=== PATIENT | male | born 1995 | race Caucasian/White ===

== ENCOUNTER 2021-05-09 23:17 | Day surgery (SDC) | payer SELFPAY ==
[2021-05-09] MEDS ORDERED: Lactated Ringers 1,000 ML IV SCH (23:45)
[2021-05-09] MEDS ORDERED: Ondansetron 4 MG/2 ML SDV IVPUSH PRN (23:47)
[2021-05-09] MEDS ORDERED: HYDROmorphone 1 MG/ML Syringe IVPUSH PRN (23:47)
[2021-05-09] MEDS ORDERED: diphenhydrAMINE 50 MG/ML SDV IVPUSH PRN (23:48)
[2021-05-10] MEDS: Acetaminophen 1,000 MG in Premix Bag 1 BAG IV SCH ×3 (00:07→18:32)
[2021-05-10] MEDS ORDERED: Naloxone 0.4 MG/ML SDV IVPUSH PRN (07:33)
[2021-05-10] MEDS ORDERED: Albuterol 0.083% 2.5 MG/3 ML Neb Soln NEB PRN (07:33)
[2021-05-10] MEDS ORDERED: Metoclopramide 10 MG/2 ML SDV IVPUSH PRN (07:33)
[2021-05-10] MEDS ORDERED: Ondansetron 4 MG/2 ML SDV IVPUSH PRN (07:33)
[2021-05-10] MEDS ORDERED: HYDROmorphone 1 MG/ML Syringe IVPUSH PRN (07:33)
[2021-05-10] MEDS ORDERED: Morphine 4 MG/ML VIAL IVPUSH PRN (07:33)
--- NOTE | 2021-05-10 07:34 | PCM.PREANE ---
Preanesthetic Assessment - Anesthesia/Transfusion/Family Hx Anesthesia History: Prior Anesthesia Without Reaction Transfusion History: No Prior Transfusion(s) - Review of Systems General: No Symptoms Pulmonary: No Symptoms Cardiovascular: No Symptoms Gastrointestinal: No Symptoms Neurological: No Symptoms Other: Reports: None - Physical Assessment NPO Status Date: 05/10/21 NPO Status Time: 00:00 Vital Signs: Last Vital Signs Temp 97.7 F 05/10/21 05:00 Pulse 61 05/10/21 05:00 Resp 16 05/10/21 05:00 BP 107/63 05/10/21 05:00 Pulse Ox 97 05/10/21 05:00 Height: 6 ft 3 in Weight: 249 lb 14.4 oz ASA Class: 2E Mental Status: Alert & Oriented x3 Airway Class: Mallampati = 2 Dentition: Reports: Normal Dentition Thyro-Mental Finger Breadths: 3 Mouth Opening Finger Breadths: 3 ROM/Head Extension: Full Lungs: Clear to Auscultation, Normal Respiratory Effort Cardiovascular: Regular Rate, Regular Rhythm - Allergies Allergies/Adverse Reactions: Allergies Allergy/AdvReac Type Severity Reaction Status Date / Time No Known Allergies Allergy Verified 05/09/21 23:34 - Acknowledgements Anesthesia Type Planned: General Anesthesia Pt an Appropriate Candidate for the Planned Anesthesia: Yes Alternatives and Risks of Anesthesia Discussed w Pt/Guardian: Yes Pt/Guardian Understands and Agrees with Anesthesia Plan: Yes PreAnesthesia Questionnaire - Past Health History Medical/Surgical History: Denies Medical/Surgical History - Infectious Disease History Infectious Disease History: Reports: Chicken Pox - Past Surgical History Musculoskeletal Surgical History: Reports: Other (See Below) Other Musculoskeletal Surgeries/Procedures:: Left Knee Surgery - SUBSTANCE USE Tobacco Use Status *Q: Never Tobacco User Second Hand Smoke Exposure: No Number of Drinks Per Day: 3 Recreational Drug Use History: No - HOME MEDS Home Medications: Home Meds . [No Known Home Meds] 05/09/21 [History] - CURRENT (IN HOUSE) MEDS Current Meds: Current Medications Diphenhydramine HCl (Diphenhydramine 50 Mg/Ml Sdv) 50 mg IVPUSH Q4H PRN PRN Reason: Itching Hydromorphone HCl (Hydromorphone 1 Mg/Ml Syringe) 0.5 mg IVPUSH Q1H PRN PRN Reason: Pain (severe 7-10) Acetaminophen 1,000 mg/ Premix 100 mls @ 400 mls/hr IV Q6H [facility] Last Admin: 05/10/21 05:38 Dose: 400 mls/hr Documented by: Lactated Ringer's (Ringers, Lactated) 1,000 mls @ 125 mls/hr IV ASDIRECTED [facility] Last Admin: 05/10/21 00:07 Dose: 125 mls/hr Documented by: Ondansetron HCl (Ondansetron 4 Mg/2 Ml Sdv) 4 mg IVPUSH Q6H PRN PRN Reason: Nausea/Vomiting
[2021-05-10] MEDS ORDERED: Propofol 200 MG/20 ML SDV ONE (07:43)
[2021-05-10] MEDS ORDERED: Rocuronium Bromide 50 MG/5 ML Syringe ONE ×2 (07:43→09:20)
[2021-05-10] MEDS ORDERED: Lidocaine 2% 5 ML SDV ONE (07:43)
[2021-05-10] MEDS ORDERED: Ondansetron 4 MG/2 ML SDV ONE (07:43)
[2021-05-10] MEDS ORDERED: Dexamethasone 4 MG/ML 5 ML MDV ONE (07:43)
[2021-05-10] MEDS ORDERED: Midazolam 1 MG/ML 2 ML SDV ONE (07:43)
[2021-05-10] MEDS ORDERED: Sugammadex Sodium 200 MG/2 ML VIAL ONE (07:43)
[2021-05-10] MEDS ORDERED: fentaNYL 250 MCG/5 ML SDV ONE (07:43)
[2021-05-10] MEDS ORDERED: Bupivacaine 0.5% 10 ML SDV ONE (07:54)
[2021-05-10] MEDS ORDERED: Scopolamine 1.5 MG Transdermal Patch ONE (08:39)
[2021-05-10] MEDS ORDERED: Ketorolac 30 MG/ML SDV ONE (09:34)
--- NOTE | 2021-05-10 09:44 | PCM.HP.2 ---
H&P History of Present Illness - General Date of Service: 05/10/21 Admit Problem/Dx: Admission Diagnosis/Problem Admission Diagnosis/Problem Appendicitis Source of Information: Patient History Limitations: Reports: No Limitations - History of Present Illness Initial Comments - Free Text/Narative: Patient is a 25 year old male who presents with acute appendicitis. He developed abdominal pain yesterday morning. This continued to increase in severity and he developed nausea and vomiting. He presented to an OSH. His vitals were stable but his WBC was increased to 11K. A CT scan was performed which showed acute appendicitis and he was given antibiotics and transferred here for surgical management. Right Lower Abdomen Pain Score (Numeric/FACES): 7 - Related Data Allergies/Adverse Reactions: Allergies Allergy/AdvReac Type Severity Reaction Status Date / Time No Known Allergies Allergy Verified 05/09/21 23:34 Home Medications: Home Meds . [No Known Home Meds] 05/09/21 [History] Past Medical History - Past Health History Medical/Surgical History: Denies Medical/Surgical History - Infectious Disease History Infectious Disease History: Reports: Chicken Pox - Past Surgical History Musculoskeletal Surgical History: Reports: Other (See Below) Other Musculoskeletal Surgeries/Procedures:: Left ACL repair Social & Family History - Family History Family Medical History: No Pertinent Family History - Tobacco Use Tobacco Use Status *Q: Never Tobacco User Second Hand Smoke Exposure: No - Caffeine Use Caffeine Use: Reports: Coffee, Energy Drinks, Soda - Alcohol Use Number of Drinks Per Day: 3 - Recreational Drug Use Recreational Drug Use: No H&P Review of Systems - Review of Systems: Review Of Systems: Comprehensive ROS is negative, except as noted in HPI. Exam - Exam Exam: See Below - Vital Signs Vital Signs: Last Vital Signs Temp 36.5 C 05/10/21 05:00 Pulse 61 05/10/21 05:00 Resp 16 05/10/21 05:00 BP 107/63 05/10/21 05:00 Pulse Ox 97 05/10/21 05:00 Weight: 113.353 kg - Exam General: Alert, Oriented, Cooperative HEENT: Conjunctiva Clear, Mucosa Moist & [place], Posterior Pharynx Clear Neck: Supple, Trachea Midline Lungs: Clear to Auscultation, Normal Respiratory Effort Cardiovascular: Regular Rate, Regular Rhythm GI/Abdominal Exam: Soft, Non-Tender, No Distention, No Mass Back Exam: Normal Inspection Extremities: Normal Inspection Sepsis Event Note - Evaluation Sepsis Screening Result: No Definite Risk - Focused Exam Vital Signs: Vital Signs Temp Pulse Resp BP Pulse Ox 05/10/21 05:00 36.5 C 61 16 107/63 97 05/09/21 23:35 36.7 C 71 16 110/80 97 - Problem List (1) Appendicitis SNOMED Code(s): 58850857 ICD Code: K37 - UNSPECIFIED APPENDICITIS Status: Acute Current Visit: Yes Qualifiers: Appendicitis type: acute appendicitis Acute appendicitis type: with localized peritonitis Appendicitis gangrene presence: without gangrene Appendicitis perforation presence: without perforation Appendicitis abscess presence: without abscess Qualified Code(s): K35.30 - Acute appendicitis with localized peritonitis, without perforation or gangrene Problem List Initiated/Reviewed/Updated: Yes Orders Last 24hrs: Active Orders 24 hr Category Date Time Status Admission Status [Patient Status] [ADT] Routine ADT 05/09/21 23:45 Active Blood Glucose Check, Bedside [RC] PRN Care 05/10/21 07:33 Active Notify Provider Vital Signs [RC] ASDIRECTED Care 05/10/21 07:33 Active Overnight Pulse Oximetry [RC] Click to Edit Care 05/10/21 07:33 Active Oxygen Therapy [RC] PRN Care 05/10/21 07:33 Active RT Aerosol Therapy [RC] ASDIRECTED Care 05/10/21 07:33 Active RT Aerosol Therapy [RC] ASDIRECTED Care 05/10/21 07:33 Active RT BiPAP/CPAP [RC] ASDIRECTED Care 05/10/21 07:33 Active Vital Signs [RC] Q5M Care 05/10/21 07:33 Active NPO [Nothing Per Oral Diet] [DIET] Diet 05/10/21 Breakfast Active Acetaminophen [Ofirmev 1000 mg/100 ml] 1,000 mg Med 05/10/21 00:00 Active Premix Bag 1 bag IV Q6H Albuterol [Proventil Neb Soln] Med 05/10/21 07:33 Active 2.5 mg NEB ONETIME PRN HYDROmorphone [Dilaudid] Med 05/09/21 23:47 Active 0.5 mg IVPUSH Q1H PRN HYDROmorphone [Dilaudid] Med 05/10/21 07:33 Active 1 mg IVPUSH Q10M PRN Lactated Ringers [Ringers, Lactated] 1,000 ml Med 05/09/21 23:45 Active IV ASDIRECTED Metoclopramide [Reglan] Med 05/10/21 07:33 Active 10 mg IVPUSH ONETIME PRN Morphine Med 05/10/21 07:33 Active 2 mg IVPUSH Q10M PRN Naloxone [Narcan] Med 05/10/21 07:33 Active 0.1 mg IVPUSH ASDIRECTED PRN Ondansetron [Zofran] Med 05/10/21 07:33 Active 4 mg IVPUSH ONETIME PRN Ondansetron [Zofran] Med 05/09/21 23:47 Active 4 mg IVPUSH Q6H PRN diphenhydrAMINE [Benadryl] Med 05/09/21 23:48 Active 50 mg IVPUSH Q4H PRN droperidoL [Inapsine] Med 05/10/21 07:33 Active 0.625 mg IVPUSH ONETIME PRN fentaNYL [Sublimaze] Med 05/10/21 07:33 Active 50 mcg IVPUSH Q5M PRN Pulse Oximetry Continuous Monitoring [OM.PC] Routine Oth 05/10/21 07:33 Ordered Medication Orders Albuterol (Albuterol 0.083% 2.5 Mg/3 Ml Neb Soln) 2.5 mg NEB ONETIME PRN PRN Reason: Wheezing Diphenhydramine HCl (Diphenhydramine 50 Mg/Ml Sdv) 50 mg IVPUSH Q4H PRN PRN Reason: Itching Droperidol (Droperidol 5 Mg/2 Ml Sdv) 0.625 mg IVPUSH ONETIME PRN PRN Reason: Nausea/Vomiting Fentanyl (Fentanyl 100 Mcg/2 Ml Sdv) 50 mcg IVPUSH Q5M PRN PRN Reason: Pain (mild 1-3) Hydromorphone HCl (Hydromorphone 1 Mg/Ml Syringe) 0.5 mg IVPUSH Q1H PRN PRN Reason: Pain (severe 7-10) Hydromorphone HCl (Hydromorphone 1 Mg/Ml Syringe) 1 mg IVPUSH Q10M PRN PRN Reason: Pain (moderate 4-6) Acetaminophen 1,000 mg/ Premix 100 mls @ 400 mls/hr IV Q6H [facility] Last Admin: 05/10/21 05:38 Dose: 400 mls/hr Documented by: Infusion: 05/10/21 00:22 Dose: 400 mls/hr Documented by: Admin: 05/10/21 00:07 Dose: 400 mls/hr Documented by: CHAPO Lactated Ringer's (Ringers, Lactated) 1,000 mls @ 125 mls/hr IV ASDIRECTED [facility] Last Admin: 05/10/21 00:07 Dose: 125 mls/hr Documented by: CHAPO Metoclopramide HCl (Metoclopramide 10 Mg/2 Ml Sdv) 10 mg IVPUSH ONETIME PRN PRN Reason: Nausea/Vomiting Morphine Sulfate (Morphine 4 Mg/Ml Vial) 2 mg IVPUSH Q10M PRN PRN Reason: Pain (severe 7-10) Naloxone HCl (Naloxone 0.4 Mg/Ml Sdv) 0.1 mg IVPUSH ASDIRECTED PRN PRN Reason: Respiratory Depression Ondansetron HCl (Ondansetron 4 Mg/2 Ml Sdv) 4 mg IVPUSH Q6H PRN PRN Reason: Nausea/Vomiting Ondansetron HCl (Ondansetron 4 Mg/2 Ml Sdv) 4 mg IVPUSH ONETIME PRN PRN Reason: Nausea/Vomiting Assessment/Plan Comment:: The patient and I discussed the pathophysiology of acute appendicitis. The treatment is appendectomy. I will attempt it laparoscopically but convert to open should I be unable to perform it safely. We discussed the different treatment courses for open vs laparoscopic and ruptured vs non-ruptured appendicitis. I explained the expected perioperative course and the risks including bleeding infection or damage to surrounding structures. He verbalized understanding and wishes to proceed.
--- NOTE | 2021-05-10 09:45 | PCM.OPNOTE ---
- General Post-Op/Procedure Note Date of Surgery/Procedure: 05/10/21 Operative Procedure(s): Laparoscopic appendectomy Findings: Dilated and inflamed retrocecal appendix Pre Op Diagnosis: Appendicitis Post-Op Diagnosis: same Anesthesia Technique: General ET Tube Primary Surgeon: Marleny Butler Fluid Replacement, Intraop: 1,500 Output, Urine Amount: 30 EBL in mLs: 5 Condition: Good Free Text/Narrative:: Intake & Output 05/09/21 05/10/21 05/10/21 22:59 06:59 14:59 Intake Total 700 Balance 700
[2021-05-10] MEDS ORDERED: Acetaminophen/oxyCODONE 325-5 MG Tab PO PRN (09:46)
--- NOTE | 2021-05-10 10:01 | PCM.POSTAN ---
POST ANESTHESIA ASSESSMENT - MENTAL STATUS Mental Status: Alert, Oriented - VITAL SIGNS Vital Signs: Last Vital Signs Temp 97.7 F 05/10/21 05:00 Pulse 61 05/10/21 05:00 Resp 16 05/10/21 05:00 BP 107/63 05/10/21 05:00 Pulse Ox 97 05/10/21 05:00 - RESPIRATORY Respiratory Status: Respiratory Rate WNL, Airway Patent, O2 Saturation Stable, Supplemental Oxygen - CARDIOVASCULAR CV Status: Pulse Rate WNL, Blood Pressure Stable - GASTROINTESTINAL GI Status: No Symptoms - POST OP HYDRATION Hydration Status: Adequate & Stable
--- NOTE | 2021-05-10 10:03 | PCM48HPAN ---
Post Anesthesia Note - EVALUATION WITHIN 48HRS OF ANESTHETIC Vital Signs in Normal Range: Yes Patient Participated in Evaluation: Yes Respiratory Function Stable: Yes Airway Patent: Yes Cardiovascular Function Stable: Yes Hydration Status Stable: Yes Pain Control Satisfactory: Yes Nausea and Vomiting Control Satisfactory: Yes Mental Status Recovered: Yes Vital Signs: Last Vital Signs Temp 97.5 F 05/10/21 09:55 Pulse 87 05/10/21 10:01 Resp 10 L 05/10/21 10:01 BP 138/72 05/10/21 10:01 Pulse Ox 100 05/10/21 10:01
[2021-05-10] MEDS: fentaNYL 100 MCG/2 ML SDV IVPUSH PRN ×2 (10:09→10:19)
--- NOTE | 2021-05-10 16:35 | PCM.SURGPN ---
- General Info Date of Service: 05/10/21 Date of Surgery/Procedure: 05/10/21 POD#: 0 Functional Status: Reports: Pain Controlled, Tolerating Diet, Ambulating, Urinating. Denies: New Symptoms - Review of Systems General: Reports: No Symptoms HEENT: Reports: No Symptoms Pulmonary: Reports: No Symptoms Cardiovascular: Reports: No Symptoms Gastrointestinal: Reports: No Symptoms Genitourinary: Reports: No Symptoms - Patient Data Vitals - Most Recent: Last Vital Signs Temp 36.6 C 05/10/21 14:45 Pulse 64 05/10/21 14:45 Resp 16 05/10/21 14:45 BP 117/85 05/10/21 14:45 Pulse Ox 95 05/10/21 14:45 Weight - Most Recent: 113.353 kg I&O - Last 24 Hours: Intake & Output 05/10/21 05/10/21 05/10/21 06:59 14:59 22:59 Intake Total 700 3400 Output Total 60 Balance 700 3340 Med Orders - Current: Current Medications Diphenhydramine HCl (Diphenhydramine 50 Mg/Ml Sdv) 50 mg IVPUSH Q4H PRN PRN Reason: Itching Hydromorphone HCl (Hydromorphone 1 Mg/Ml Syringe) 0.5 mg IVPUSH Q1H PRN PRN Reason: Pain (severe 7-10) Lactated Ringer's (Ringers, Lactated) 1,000 mls @ 125 mls/hr IV ASDIRECTED [facility] Last Admin: 05/10/21 00:07 Dose: 125 mls/hr Documented by: Ondansetron HCl (Ondansetron 4 Mg/2 Ml Sdv) 4 mg IVPUSH Q6H PRN PRN Reason: Nausea/Vomiting Oxycodone/Acetaminophen (Acetaminophen/Oxycodone 325-5 Mg Tab) 2 tab PO Q4H PRN PRN Reason: Pain (moderate 4-6) Discontinued Medications Albuterol (Albuterol 0.083% 2.5 Mg/3 Ml Neb Soln) 2.5 mg NEB ONETIME PRN PRN Reason: Wheezing Bupivacaine HCl (Bupivacaine 0.5% 10 Ml Sdv) Confirm Administered Dose 20 ml .ROUTE .STK-MED ONE Stop: 05/10/21 07:55 Dexamethasone (Dexamethasone 4 Mg/Ml 5 Ml Mdv) Confirm Administered Dose 20 mg .ROUTE .STK-MED ONE Stop: 05/10/21 07:44 Droperidol (Droperidol 5 Mg/2 Ml Sdv) 0.625 mg IVPUSH ONETIME PRN PRN Reason: Nausea/Vomiting Fentanyl (Fentanyl 100 Mcg/2 Ml Sdv) 50 mcg IVPUSH Q5M PRN PRN Reason: Pain (mild 1-3) Last Admin: 05/10/21 10:19 Dose: 50 mcg Documented by: Fentanyl (Fentanyl 250 Mcg/5 Ml Sdv) Confirm Administered Dose 250 mcg .ROUTE .STK-MED ONE Stop: 05/10/21 07:44 Hydromorphone HCl (Hydromorphone 1 Mg/Ml Syringe) 1 mg IVPUSH Q10M PRN PRN Reason: Pain (moderate 4-6) Last Admin: 05/10/21 10:07 Dose: 1 mg Documented by: Acetaminophen 1,000 mg/ Premix 100 mls @ 400 mls/hr IV Q6H [facility] Last Admin: 05/10/21 05:38 Dose: 400 mls/hr Documented by: Ketorolac Tromethamine (Ketorolac 30 Mg/Ml Sdv) Confirm Administered Dose 30 mg .ROUTE .STK-MED ONE Stop: 05/10/21 09:35 Lidocaine (Lidocaine 2% 5 Ml Sdv) Confirm Administered Dose 10 ml .ROUTE .STK- MED ONE Stop: 05/10/21 07:44 Metoclopramide HCl (Metoclopramide 10 Mg/2 Ml Sdv) 10 mg IVPUSH ONETIME PRN PRN Reason: Nausea/Vomiting Midazolam HCl (Midazolam 1 Mg/Ml 2 Ml Sdv) Confirm Administered Dose 2 mg .ROUTE .STK-MED ONE Stop: 05/10/21 07:44 Morphine Sulfate (Morphine 4 Mg/Ml Vial) 2 mg IVPUSH Q10M PRN PRN Reason: Pain (severe 7-10) Naloxone HCl (Naloxone 0.4 Mg/Ml Sdv) 0.1 mg IVPUSH ASDIRECTED PRN PRN Reason: Respiratory Depression Ondansetron HCl (Ondansetron 4 Mg/2 Ml Sdv) 4 mg IVPUSH ONETIME PRN PRN Reason: Nausea/Vomiting Ondansetron HCl (Ondansetron 4 Mg/2 Ml Sdv) Confirm Administered Dose 4 mg .ROUTE .STK-MED ONE Stop: 05/10/21 07:44 Propofol (Propofol 200 Mg/20 Ml Sdv) Confirm Administered Dose 400 mg .ROUTE .STK-MED ONE Stop: 05/10/21 07:44 Rocuronium Hector (Rocuronium Hector 50 Mg/5 Ml Syringe) Confirm Administered Dose 50 mg .ROUTE .STK-MED ONE Stop: 05/10/21 07:44 Rocuronium Hector (Rocuronium Hector 50 Mg/5 Ml Syringe) Confirm Administered Dose 50 mg .ROUTE .STK-MED ONE Stop: 05/10/21 09:21 Scopolamine (Scopolamine 1.5 Mg Transdermal Patch) Confirm Administered Dose 1.5 mg .ROUTE .STK-MED ONE Stop: 05/10/21 08:40 Sugammadex Sodium (Sugammadex Sodium 200 Mg/2 Ml Vial) Confirm Administered Dose 200 mg .ROUTE .STK-MED ONE Stop: 05/10/21 07:44 - Exam Wound/Incisions: Healing Well, Dressing Dry and Intact General: Alert, Oriented, Cooperative HEENT: Pupils Equal Lungs: Normal Respiratory Effort Cardiovascular: Regular Rate GI/Abdominal Exam: Soft, Non-Tender, No Distention, No Mass Extremities: Normal Inspection Skin: Warm, Dry, Intact Neurological: No New Focal Deficit Sepsis Event Note - Evaluation Sepsis Screening Result: No Definite Risk - Focused Exam Vital Signs: Vital Signs Temp Pulse Resp BP Pulse Ox Pulse Ox 05/10/21 14:45 36.6 C 64 16 117/85 95 05/10/21 13:45 68 16 121/98 H 97 05/10/21 12:45 36.6 C 57 L 16 124/80 96 05/10/21 12:15 72 16 119/70 97 05/10/21 11:45 36.4 C 56 L 16 112/56 L 94 L 05/10/21 11:30 57 L 16 122/62 94 L 05/10/21 11:15 56 L 16 118/66 93 L 05/10/21 11:00 36.4 C 58 L 16 130/78 99 05/10/21 10:45 36.3 C 65 16 130/78 98 97 05/10/21 10:36 57 L 12 120/72 94 L 05/10/21 10:31 70 10 L 131/69 95 05/10/21 10:26 83 15 130/73 96 05/10/21 10:21 50 L 10 L 120/70 99 05/10/21 10:16 68 9 L 123/69 98 05/10/21 10:11 72 9 L 99/57 L 100 05/10/21 10:06 85 12 123/76 100 05/10/21 10:01 87 10 L 138/72 100 05/10/21 09:55 36.4 C 96 16 132/68 99 05/10/21 05:00 36.5 C 61 16 107/63 97 - Problem List & Annotations (1) Appendicitis SNOMED Code(s): 49774729 Code(s): K37 - UNSPECIFIED APPENDICITIS Status: Acute Current Visit: Yes Qualifiers: Appendicitis type: acute appendicitis Acute appendicitis type: with localized peritonitis Appendicitis gangrene presence: without gangrene Appendicitis perforation presence: without perforation Appendicitis abscess presence: without abscess Qualified Code(s): K35.30 - Acute appendicitis with localized peritonitis, without perforation or gangrene - Problem List Review Problem List Initiated/Reviewed/Updated: Yes - My Orders Last 24 Hours: Active Orders 24 hr Category Date Time Status Admission Status [Patient Status] [ADT] Routine ADT 05/09/21 23:45 Active Blood Glucose Check, Bedside [RC] PRN Care 05/10/21 07:33 Active Notify Provider Vital Signs [RC] ASDIRECTED Care 05/10/21 07:33 Active Overnight Pulse Oximetry [RC] Click to Edit Care 05/10/21 07:33 Active Oxygen Therapy [RC] PRN Care 05/10/21 07:33 Active Oxygen Therapy [RC] PRN Care 05/10/21 09:47 Active RT Aerosol Therapy [RC] ASDIRECTED Care 05/10/21 07:33 Active RT Aerosol Therapy [RC] ASDIRECTED Care 05/10/21 07:33 Active RT BiPAP/CPAP [RC] ASDIRECTED Care 05/10/21 07:33 Active Ready for Discharge [RC] PER UNIT ROUTINE Care 05/10/21 16:20 Active Up ad Bhakti [RC] ASDIRECTED Care 05/10/21 09:46 Active Vital Signs [RC] Q4H Care 05/10/21 09:47 Active Regular Diet [DIET] Diet 05/10/21 Breakfast Active Acetaminophen/oxyCODONE [Percocet 325-5 MG] Med 05/10/21 09:46 Active 2 tab PO Q4H PRN HYDROmorphone [Dilaudid] Med 05/09/21 23:47 Active 0.5 mg IVPUSH Q1H PRN Lactated Ringers [Ringers, Lactated] 1,000 ml Med 05/09/21 23:45 Active IV ASDIRECTED Ondansetron [Zofran] Med 05/09/21 23:47 Active 4 mg IVPUSH Q6H PRN diphenhydrAMINE [Benadryl] Med 05/09/21 23:48 Active 50 mg IVPUSH Q4H PRN Pulse Oximetry Continuous Monitoring [OM.PC] Routine Oth 05/10/21 07:33 Ordered Resuscitation Status Routine Resus Stat 05/10/21 09:46 Ordered Medication Orders Diphenhydramine HCl (Diphenhydramine 50 Mg/Ml Sdv) 50 mg IVPUSH Q4H PRN PRN Reason: Itching Hydromorphone HCl (Hydromorphone 1 Mg/Ml Syringe) 0.5 mg IVPUSH Q1H PRN PRN Reason: Pain (severe 7-10) Lactated Ringer's (Ringers, Lactated) 1,000 mls @ 125 mls/hr IV ASDIRECTED [facility] Last Admin: 05/10/21 00:07 Dose: 125 mls/hr Documented by: SEMICHR Ondansetron HCl (Ondansetron 4 Mg/2 Ml Sdv) 4 mg IVPUSH Q6H PRN PRN Reason: Nausea/Vomiting Oxycodone/Acetaminophen (Acetaminophen/Oxycodone 325-5 Mg Tab) 2 tab PO Q4H PRN PRN Reason: Pain (moderate 4-6) - Plan Plan (Free Text/Narrative):: The patient is stable. We discussed the discharge instructions. Follow up in clinic in 1-2 weeks. Ok for discharge.
--- NOTE | 2021-05-11 08:43 | OR ---
SURGEON: MARLENY BUTLER MD DATE OF PROCEDURE: 05/10/2021 PREOPERATIVE DIAGNOSIS: Appendicitis. POSTOPERATIVE DIAGNOSIS: Appendicitis. PROCEDURE PERFORMED: Laparoscopic appendectomy. PRIMARY SURGEON: Marleny Butler MD ANESTHESIA: General endotracheal anesthesia. FLUIDS: 1500 mL crystalloid. ESTIMATED BLOOD LOSS: 5 mL. URINE OUTPUT: 30 mL. FINDINGS: Retrocecal appendix that was acutely dilated and inflamed with no evidence of perforation. COMPLICATIONS: None. INDICATIONS: The patient is a 25-year-old male who presents from an outside hospital with diagnosis of appendicitis. I explained the pathophysiology of appendicitis. I explained the need for laparoscopic, possible open appendectomy. I discussed the benefits and risks. The risks included bleeding, infection, or damage to surrounding structures. The patient verbalized understanding and wishes to proceed. PROCEDURE IN DETAIL: The patient was brought into the OR and placed on the OR table in supine position. A time-out was completed verifying the patient's name, age, date of , allergies, and procedure to be performed. General endotracheal anesthesia was induced. The left arm was tucked to the patient's side and a Denise catheter placed. The abdomen was prepped and draped in usual standard fashion. I anesthetized an area 2 fingerbreadths below the left subcostal margin in the midclavicular line with 0.5% Marcaine plain. An 11 blade was used to make an incision over this area. A 5 mm trocar was used to gain entry into the left upper quadrant under direct visualization. All layers of the abdominal wall were visualized upon entry. A 5 mm 30 degree scope was inserted. I inspected the area underneath my initial trocar placement. No damage to surrounding structures was noted. A 5 mm trocar was placed just left and lateral to the umbilicus under direct visualization. A 12 mm trocar was placed under direct visualization in the lower midline. The patient was placed in Trendelenburg position and airplaned slightly to the left. I turned my attention the right lower quadrant. The patient had a short ascending colon. I identified the terminal ileum as well as the cecum. I followed the tenia down and did not see the appendix. The cecum was then rotated medially in the retroperitoneum surrounded by adhesions with a dilated and thickened appendix. Using a [place], I bluntly dissected some of the retroperitoneal attachments to allow me to grasp the tip of the appendix and rotated anteriorly. Using a [place] dissector and a Harmonic scalpel device, I took down the appendiceal mesentery and retroperitoneal attachments. This was done in distal to proximal fashion. As I did this, I was able to rotate my appendix more anteriorly. As I got closer to the proximal appendix, I identified the base of the appendix. Once all the tissue was cleared away from the appendix, I stapled and transected across the base of the appendix with an endoscopic stapling device using a 45 mm purple load of rajan. The appendix was then placed into an EndoCatch bag and removed through the 12 mm port site. The port was replaced, and I inspected my operative field. It was irrigated with a small amount of fluid, which was then suctioned out. The area appeared hemostatic and the staple line appeared intact. The 12 mm trocar was removed and I closed the fascia at this site using an interrupted 0 Vicryl suture with a Danyel-Citlalli device. The 5 mm trocars were removed under direct visualization. The abdomen allowed to desufflate. The 12 mm trocar site was closed with interrupted 3-0 Vicryl sutures in the subcutaneous fat layer and the skin was closed with running 4-0 Monocryl stitch. The 5 mm trocar sites were closed with interrupted 4-0 Monocryl sutures. Steri- Strips and sterile dressings were applied. The patient was extubated and taken to PACU in stable condition. All counts were complete and correct at the end of the case. DELMA / FELICIA /[id number]
== END 2021-05-10 17:25 | disposition home or self-care (01) ==
LOC: MW.MS 23:17 → MW.SDS 23:17
PROVIDERS: ATTEND Surgery
DX: K35.30 Acute appendicitis with localized peritonitis, without perforation or gangrene (principal)
CPT/HCPCS: 44970; A9270; J0131; J1100; J1170; J1885; J2250; J2405; J2704; J3010; J3490; J7030; J7120; 00840